=== PATIENT | female | born 1965 ===

== ENCOUNTER 2023-09-30 20:08 | Inpatient (IN) | payer OTHER, SELFPAY ==
[2023-09-30 17:23] VITALS: BMI 36.0
[2023-09-30 17:35] VITALS: BP 127/61
[2023-09-30 17:57] LABS: COVID-19 Antigen Negative (Negative)
[2023-09-30 18:00] VITALS: BP 125/58
[2023-09-30] MEDS: NSS 1400 ML IV (18:01)
[2023-09-30] MEDS: TYLENOL 1000 MG PO (18:02)
[2023-09-30] MEDS: MOTRIN 600 MG PO (18:06)
[2023-09-30 18:40] LABS: % Basophils 0.2 % (0-2); % Immature Granulocytes 0.7 % (0-0.5); % Lymphocytes 6.6 % (20.5-51.1); % Monocytes 6.5 % (1.7-9.3); Absolute Immature Granulocytes 0.2 10^3/uL (0-0.05); Absolute Lymphocytes 1.5 10^3/uL (1.2-3.4); Absolute Monocytes 1.5 10^3/uL (0.1-0.6); Absolute Neutrophils 19.3 10^3/uL (1.4-6.5); Hematocrit 41.1 % (37.0-47.0); Hemoglobin 14.3 g/dL (12.0-16.0); Mean Corp Hgb Conc. 34.8 g/dL (33.0-37.0); Mean Corpuscular Hgb 30.4 pg (27.0-31.0); Mean Corpuscular Volume 87.3 fL (81.0-99.0); Mean Platelet Volume 9.7 fL (7.4-10.4); Nucleated Red Blood Cells % 0 %; Platelet Count 275 10^3/uL (130-400); Red Blood Cell Count 4.71 10^6/uL (4.20-5.40); Red Cell Dist. Width 13.4 % (11.5-14.5); White Blood Cell Count 22.5 10^3/uL (4.8-10.8)
[2023-09-30 18:43] LABS: Lactic Acid 1.3 mmol/L (0.7-2.0)
[2023-09-30 18:47] LABS: ALT (SGPT) 42 U/L (0-35); AST (SGOT) 47 U/L (14-36); Albumin 3.6 g/dl (3.5-5.0); Alkaline Phosphatase 75 U/L (38-126); Blood Urea Nitrogen 22 mg/dl (7-17); Calcium 8.5 mg/dl (8.4-10.2); Carbon Dioxide 33 mmol/L (22-30); Chloride 92 mmol/L (98-107); Estimated Creatinine Clearance 64 ml/min; Glucose 148 mg/dl (70-99); Potassium 2.7 mmol/L (3.5-5.1); Sodium 133 mmol/L (135-145); Total Bilirubin 0.8 mg/dl (0.2-1.3); Total Protein 6.3 g/dl (6.3-8.2); eGFR > 60.00
--- NOTE | 2023-09-30 18:47 | ED.GENMED ---
History of Present Illness
General
Chief Complaint: Fever
Source: patient
Exam Limitations: none
Time Seen by Provider: 09/30/23 17:25
Travel History
Have you had any contact with someone who has COVID-19?: No
Do you have any symptoms of coronavirus? Fever > 100 degrees, chills, cough, shortness of breath, sore throat, loss of taste or smell, muscle aches, or headache?: Yes
Symptoms:: chills, fever,
History of Present Illness
History of Present Illness:
58 y/o F with h/o depression, hypertension
here with fever, bodyaches, sore throat, myaglias, fatigue, high fever since yesterday
pt has had painful swallwing
no cough, abdominal pain, vomiting, diarrhea, rash, neck stiffness, cp, sob,
pt didn't take any meds for fever
temp was 104.5 at home at 4 pm
pt hasn't had any meds today
hasn't eaten much
Past History
Past History
ED Past Medical History: HTN and Psychiatric
Social History
Tobacco: Non-smoker
Alcohol: None
Drug: None
Review of Systems
Review of Systems
Allergies reviewed?: Yes
All Other Systems: Not applicable
Phy Exam
Physical Exam
Physical Exam:
GENERAL: asleep, easily arousable, ill appearing
EYE: pupils equal and reactive
NECK: Supple
ENT: severely erythematous throat, tonsillith on right side, no obvious abscess
moving neck easily
normal phonation
CARDIAC: Regular rate and rhythm .
LUNGS: Clear breath sounds bilaterally, no acute respiratory distress, no wheezes/rales/rhonchi
ABDOMEN: Soft, without focal tenderness, no r/g, no cvat, normal bowel sounds
NEUROLOGICAL: Alert and oriented, no focal neuro deficits
SKIN: Warm and dry, skin intact.
MUSCULOSKELETAL: No edema, well perfused. neg chhaya's sign
PSYCH: Normal and appropriate interaction.
Course
Orders/Labs/Results
Orders:
Orders
09/30/23 Dinner
Regular
At Your Request: Full Participation
09/30/23 17:28
EKG [Electrocardiogram (*1)] Urgent
Reason for Study: Fatigue / Weakness
09/30/23 17:29
EKG- Treatment ONCE
09/30/23 17:32
Influenza A+B Rapid Molecular Urgent
ORTIZ Source: Nasal Swab
Specimen Description:
09/30/23 17:34
COVID-19 Antigen Urgent
Source: Nasal Swab
09/30/23 17:47
Cardiac Monitoring- Treatment ONCE
0.9% Sodium Chloride 1000 ml [Nss] 1,400 ml IV NOW STA
Acetaminophen [Tylenol] 1,000 mg PO NOW STA
Ibuprofen [Motrin] 600 mg PO NOW STA
09/30/23 17:48
CR Chest Portable - 1 View Urgent
Comment:
Reason For Exam: fever, sepsis
Reason Study Needs to be Portable: Patient Unstable
09/30/23 18:05
Ibuprofen [Motrin] 600 mg .ROUTE .STK-MED ONE
09/30/23 18:09
Complete Blood Count/With Diff Urgent
Comprehensive Metabolic Panel Urgent
Lactic Acid Q4H
Comment: CANCEL 2nd LACTIC ACID IF 1st LACTIC ACID IS LESS THAN 2
Magnesium Urgent
Comment: ADD ON
Troponin I Urgent
Blood Culture Q30M
ORTIZ Source: Blood/Venous
Specimen Description:
Blood Culture Q30M
ORTIZ Source: Blood/Venous
Specimen Description:
09/30/23 18:18
Rapid Strep Group A Urgent
ORTIZ Source: Throat/Pharynx
Specimen Description:
Date Specimen was Collected: 09/30/23
Time Specimen was Collected: 18:15
09/30/23 18:48
CT Neck With Iv Contrast Urgent
Comment:
Reason For Exam: STREP, SEPSIS
Piperacillin/Tazo 4.5 Gram [Zosyn] 4.5 gram in 100 ml IV NOW
09/30/23 18:50
Add On- LAB Urgent
Tests Added?: magnesium
09/30/23 19:19
Potassium Chloride [KCl] 20 meq PO NOW STA
09/30/23 19:21
Admit/Transfer Patient As Directed
Co-Sign Provider:
Level of Care: Inpatient admission
Assign to:: Medical/Surgical
Physician / Group: deborah
Diagnosis: strep pharyngitis
Reason for Hospitalization: strep pharyngitis
Expected length of stay greater than two midnights?: Yes
ELOS- Estimated Length of Stay in days: 2
I certify the patient meets the requirements for IP care: Yes
09/30/23 19:23
Code Status As Directed
Resuscitation Status: Full Code
09/30/23 21:51
Urinalysis Reflex To Culture Urgent
Date Specimen was Collected: 09/30/23
Time Specimen was Collected: 21:46
09/30/23 21:58
0.9% Sodium Chloride 1000 ml [Nss] 1,000 ml IV 100 mls/hr
Acetaminophen [Tylenol] 650 mg PO Q4HPRN PRN
Artificial Tears (Pf) [Refresh Eye Drops (Pf)] 1 drops BOTH EYES DAILYPRN PRN
Heparin 5,000 units SC Q12
Ibuprofen [Motrin] 400 mg PO Q6HPRN PRN
09/30/23 21:58
Activity As Directed
Activity Level: As Tolerated
Vital Signs As Directed
Frequency: Per unit guidelines
DX Deep Vein Thrombosis Video Routine
10/01/23 06:00
Complete Blood Count/With Diff IN AM
Comprehensive Metabolic Panel IN AM
10/01/23 18:00
Chlorthalidone [Hygroton] 25 mg PO QPM
Citalopram [Celexa] 20 mg PO QPM
Lisinopril [Zestril] 10 mg PO QPM
Pantoprazole [Protonix] 40 mg PO QPM
Abnormal Lab Results
09/30/23
18:09
WBC 22.5 H 10^3/uL
(4.8-10.8)
Abs Immat Gran (auto) 0.2 H 10^3/uL
(0-0.05)
Absolute Neuts (auto) 19.3 H 10^3/uL
(1.4-6.5)
Absolute Monos (auto) 1.5 H 10^3/uL
(0.1-0.6)
Immature Gran % 0.7 H %
(0-0.5)
Neutrophils % 86.0 H %
(42.2-75.2)
Lymphocytes % 6.6 L %
(20.5-51.1)
Sodium 133 L mmol/L
(135-145)
Potassium 2.7 L* mmol/L
(3.5-5.1)
Chloride 92 L mmol/L
(98-107)
Carbon Dioxide 33 H mmol/L
(22-30)
BUN 22 H mg/dl
(7-17)
Glucose 148 H mg/dl
(70-99)
AST 47 H U/L
(14-36)
ALT 42 H U/L
(0-35)
09/30/23 18:09
09/30/23 18:09
Vital Signs
Initial and Last Documented VS:
Initial Vital Signs
Temp Pulse Resp BP Pulse Ox
105 F H 95 18 127/61 93
09/30/23 17:35 09/30/23 17:35 09/30/23 17:35 09/30/23 17:35 09/30/23 17:35
Last Documented Vital Signs
Temp Pulse Resp BP Pulse Ox
97.9 F 73 16 87/47 97
09/30/23 22:15 10/01/23 01:08 09/30/23 22:15 10/01/23 01:08 09/30/23 22:15
MDM/Problems Addressed
Differential Diagnosis Includes:
strep, flu, covid, sepsis, bacteremia
MDM/Problems Addressed:
iglesia avalos 58 y/o F h/o strep throat in the past; high fever x 2 days, lethargy, sroe throat, bodyaches; temp 105 on arrival, bp was 100s now 120s, severely red throat, no signs of abscess, tolerating secretions; wbc 22, k 2.7 (mag pending and
i'll order meds), qtc 550, covid and flu neg; STREP POS; pending CT neck with contrast; but i suspect just pharyngitis but possibly strep bacteremia; zosyn
ent aware
*Critical Care Note
Total Time (30-74mins, 75-104mins- exclusive of procedures): Not Applicable
ED Attending Note
-
Portions of this chart may have been created with voice recognition software.� Occasional wrong word or��sound alike� substitutions may have occurred due to the inherent limitations of voice recognition software.
Discharge Plan
Departure
Patient Disposition: Admit
Date of Disposition: 09/30/23
Time of Disposition: 18:49
Admit to: IMU
Presentation/result/management discussed w/ accepting MD/DO: Hospitalist
Patient with high blood pressure during this ER visit?: No
Condition: Fair
Covid-19: Not Applicable
Discharge Problem:
Strep pharyngitis, Sepsis
Interventions
Interventions:
*Risk Screen - Suicide Last Done: 09/30/23 17:43
*General Assessment Last Done: 09/30/23 17:27
*Neglect/Abuse Screening Last Done: 09/30/23 22:26
ED- Fall Risk Assessment Last Done: 09/30/23 17:43
*ED COVID-19 Vaccine History Last Done: 09/30/23 17:27
*Nursing Disposition Last Done: 09/30/23 22:26
ED- Neurological Assessment Last Done: 09/30/23 17:43
ED-Skin Assessment Last Done: 09/30/23 17:43
Discharge Date and Time
Discharge Date/Time: 09/30/23 22:27
[2023-09-30 18:57] LABS: Troponin I < 0.012 ng/ml
[2023-09-30] MEDS: ZOSYN 100 IV (18:57)
[2023-09-30 19:01] VITALS: BP 119/53
[2023-09-30 19:07] LABS: Magnesium 1.6 mg/dl (1.6-2.3)
--- NOTE | 2023-09-30 19:27 | HPS.HSE ---
Addendum entered and electronically signed by Khoi Ascencio MD 09/30/23 21:36:
Neck CT shows small right tonsillar pilar abscess formation measuring 6 mm. ER spoke with ENT who states it is too small for any intervention.
Original Note:
Family Physician
-
Family Physician: Kylie Diego
Chief Complaint
-
sore throat
History of Present Illness
58-year-old female past medical history of strep throat, depression, vertigo, hypertension, obesity, hepatic steatosis, skin cancer, presenting with fever, body aches, sore throat, fatigue, high fever since yesterday. She has painful swallowing.
Denies cough, runny nose, abdominal pain, vomiting, diarrhea, rash, neck stiffness, chest pain or shortness of breath. She states that she gets strep throat 3 times a year. He denies any sick contacts.
Denies smoking or alcohol use.
Medical History
Past Medical History
Past Medical History: Reports Other ( strep throat, depression, vertigo, hypertension, obesity, hepatic steatosis)
Past Surgical History: Reports and Gynocological
Social History
Tobacco: Non-smoker
Alcohol: None
Drug: None
Family History
Family History: Not pertinent
Allergies / Home Medications
Allergies reflects when Allergies were last updated in [facility].
Home Medications with original date entered in [facility]
Allergy/Medication List:
Allergies
Allergy/AdvReac Type Severity Reaction Status Date / Time
morphine Allergy Rash Verified 09/30/23 17:27
Home Medications
Nutrafol Supplement 4 tab PO QPM 09/30/23
atenolol 50 mg-chlorthalidone 25 mg tablet 1 tab PO QPM 09/30/23
citalopram 20 mg tablet 20 mg PO QPM 09/30/23
dextran 70-hypromellose (PF) 0.1 %-0.3 % eye drops in a dropperette (Artificial Tears (PF)) 1 drp BOTH EYES DAILYPRN PRN dry eyes 09/30/23
lisinopril 10 mg tablet 10 mg PO QPM 09/30/23
omeprazole 40 mg capsule,delayed release 40 mg PO QPM 09/30/23
Review of Systems
-
History Source: Patient
A 12 point ROS was completed and negative except as noted: Yes
Constitutional: Reports No Symptoms
EENT: Reports No Symptoms
Respiratory: Reports No Symptoms
Cardiac: Reports No Symptoms
Abdomen/GI: Reports No Symptoms
: Reports No Symptoms
Musculoskeletal: Reports No Symptoms
Skin: Reports No Symptoms
Neurological: Reports No Symptoms
Endocrine: Reports No Symptoms
Hematologic/Lymphatic: Reports No Symptoms
Psych: Reports No Symptoms
Physical Exam
Vital Signs
Vital Signs
Temp Pulse Resp BP Pulse Ox
105 F H 91 18 127/61 92
09/30/23 17:35 09/30/23 17:35 09/30/23 17:35 09/30/23 17:35 09/30/23 17:35
Physical Exam
General: Well Developed, Well Nourished and No Apparent Distress
HEENT: NormoCephalic, Moist mucous membranes, Atraumatic and Other (erythema throat )
Respiratory: Clear
Cardiac: S1/S2 and Regular Rhythm; No Murmur or Rub
GI: Soft, Non Tender, Non Distended and Normal Bowel Sounds; No Organomegaly
Rectal: Deferred by Provider
Musculoskeletal: No Clubbing, No Cyanosis and No Edema
Skin: No Rash
Neuro: Nonfocal/grossly intact
Laboratory Results
-
09/30/23 18:09
09/30/23 18:09
Laboratory Results
Lactic Acid 1.3 mmol/L (0.7-2.0) 09/30/23 18:09
Total Bilirubin 0.8 mg/dl (0.2-1.3) 09/30/23 18:09
AST 47 U/L (14-36) H 09/30/23 18:09
ALT 42 U/L (0-35) H 09/30/23 18:09
Alkaline Phosphatase 75 U/L (38-126) 09/30/23 18:09
Troponin I < 0.012 ng/ml 09/30/23 18:09
Data Reviewed
-
Lab Data: Labs Reviewed by me
Old Records: Reviewed
Impression/Plan
-
IMPRESSION:
PLAN:
# Sepsis (fever, leukocytosis) secondary to Group A strep pharyngitis
# History of recurrent strep throat
-Positive for strep A
-Chest x-ray negative
-COVID-negative and influenza negative
-CT neck pending
-Check blood cultures
-IV fluids
-Ceftriaxone
-Tylenol for fever, ibuprofen
# Hypokalemia secondary to chlorthalidone
-Replete potassium
-Check magnesium
Essential hypertension
-Continue atenolol/chlorthalidone
-Continue lisinopril
Depression
-Continue citalopram
Obesity
Hepatic steatosis
GERD
-Continue omeprazole
History of vertigo
History of skin cancer
Full code
DVT prophylaxis�heparin
Regular diet
[2023-09-30] MEDS: KCL 20 MEQ PO (21:41)
[2023-09-30 22:00] VITALS: BMI 35.7
[2023-09-30 22:06] LABS: Urine Albumin Trace (Neg - Trace); Urine Bilirubin Negative (Negative); Urine Character Clear (Clear); Urine Color Yellow; Urine Glucose Negative (Negative); Urine Ketone Negative (Negative); Urine Leukocyte Trace (Negative); Urine Nitrite Negative (Negative); Urine Occult Blood 1+ (Negative); Urine Urobilinogen Negative (Neg - 1+)
[2023-09-30 22:15] VITALS: BP 88/49
[2023-09-30 22:16] LABS: Urine Squamous Cell >30 /LPF (Few)
[2023-09-30 22:17] LABS: Urine Urothelial Cell 0-2 /LPF (FEW); Urine White Cell 0-2 /HPF (0-5)
[2023-09-30] MEDS: KCL 160 MEQ IV (22:27)
[2023-09-30] MEDS: NSS 1000 IV (22:27)
[2023-09-30] MEDS: MOTRIN 400 MG PO (22:38)
[2023-09-30] MEDS: HEPARIN 5000 UNITS SC (22:39)
--- NOTE | 2023-09-30 23:15 | PTCARENOTE ---
Received pt from the ED via stretcher, pt ambulated steadily and independently from stretcher to hospital bed, no c/o dizziness/unsteadiness. Pt AAOx3, medsurg, tolerating RA 97%. Pt c/o pain w/ swallowing, but tolerating secretions. Pt denies SOB
or difficulty breathing, reports 8/10 throat pain. Pt's BP 88/49, asymptomatic. NSS initiated @ 80mL/hr concurrently with IV Potassium @ 80mL/hr per order, PRN Ibuprofen administered for pain, see MAR. Pt oriented to unit and call marlow.
[2023-10-01] VITALS (7 sets, daily range): BP systolic 87–168; BP diastolic 47–63
[2023-10-01] MEDS: ZOSYN 50 IV ×4 (00:59→17:55)
--- NOTE | 2023-10-01 01:42 | PTCARENOTE ---
IV Potassium completed, pt received 360mL fluid, repeat BP 87/47. Pt remains asymptomatic, denies dizziness/lightheadedness. D/w covering FERN CUTTER, IVF rate changed from 80mL/hr to 100mL/hr.
--- NOTE | 2023-10-01 03:30 | PTCARENOTE ---
Repeat BP 89/51, pt remains asymptomatic. Covering RN HEMATOLOGY updated, no new orders at this time, NSS remains infusing at 100mL/hr.
[2023-10-01 06:27] LABS: % Basophils 0.2 % (0-2); % Eosinophils 0.2 % (0-6); % Immature Granulocytes 0.6 % (0-0.5); % Lymphocytes 5.4 % (20.5-51.1); % Monocytes 5.2 % (1.7-9.3); % Neutrophils 88.4 % (42.2-75.2); Absolute Immature Granulocytes 0.1 10^3/uL (0-0.05); Absolute Neutrophils 17.2 10^3/uL (1.4-6.5); Hematocrit 38.8 % (37.0-47.0); Hemoglobin 13.1 g/dL (12.0-16.0); Mean Corp Hgb Conc. 33.8 g/dL (33.0-37.0); Mean Corpuscular Hgb 30.3 pg (27.0-31.0); Mean Corpuscular Volume 89.6 fL (81.0-99.0); Mean Platelet Volume 9.4 fL (7.4-10.4); Nucleated Red Blood Cells % 0 %; Platelet Count 226 10^3/uL (130-400); Red Blood Cell Count 4.33 10^6/uL (4.20-5.40); Red Cell Dist. Width 13.7 % (11.5-14.5); White Blood Cell Count 19.4 10^3/uL (4.8-10.8)
[2023-10-01 06:55] LABS: ALT (SGPT) 68 U/L (0-35); AST (SGOT) 75 U/L (14-36); Albumin 3.6 g/dl (3.5-5.0); Alkaline Phosphatase 92 U/L (38-126); Blood Urea Nitrogen 22 mg/dl (7-17); Calcium 7.8 mg/dl (8.4-10.2); Carbon Dioxide 29 mmol/L (22-30); Chloride 104 mmol/L (98-107); Estimated Creatinine Clearance 57 ml/min; Glucose 104 mg/dl (70-99); Sodium 140 mmol/L (135-145); Total Bilirubin 0.9 mg/dl (0.2-1.3); Total Protein 6.4 g/dl (6.3-8.2); eGFR > 60.00
[2023-10-01 07:36] LABS: Hepatitis C Antibody Negative (Negative)
--- NOTE | 2023-10-01 07:55 | W.PN.HOSP.TC ---
Today's Communication/Plan
-
Continue Zosyn
Continue IV fluids as BP remains soft
Hold antihypertensives including chlorthalidone which also contributed to hypokalemia
Add Toradol for pain
Encourage salt water gargle
Assessment / Plan
Assessment / Plan
58-year-old female past medical history of strep throat, depression, vertigo, hypertension, obesity, hepatic steatosis, skin cancer,� presenting with fever, body aches, sore throat, fatigue, high fever since yesterday.� She has painful swallowing.�
Denies cough, runny nose, abdominal pain, vomiting, diarrhea, rash, neck stiffness, chest pain or shortness of breath.� She states that she gets strep throat 3 times a year.� He denies any sick contacts.
Denies smoking or alcohol use.
# Sepsis (fever, leukocytosis) secondary to Group A strep pharyngitis
# History of recurrent strep throat
-Positive for strep A
-Chest x-ray negative
-COVID-negative and influenza negative
-CT neck small right peritonsillar 6 mm abscess/per ENT too small to drain
-Check blood cultures
-IV fluids to continue
-Zosyn to continue
-Tylenol for fever, ibuprofen/Toradol if cannot tolerate pills
# Hypokalemia secondary to chlorthalidone
-Replete potassium
-Check magnesium
Essential hypertension
-Continue atenolol/chlorthalidone
-Continue lisinopril
Depression
-Continue citalopram
Obesity
Hepatic steatosis
GERD
-Continue omeprazole
History of vertigo
History of skin cancer
Full code
DVT prophylaxis�heparin
Regular diet
Anticipated Discharge: 24 - 48 hours
Subjective/Interval History
-
Date of Service: October 01, 2023
Continues with complaint of right side more than left side sore throat difficulty swallowing but tolerating liquids not choking and able to swallow saliva some benefit with Motrin which she has trouble taking
Objective Data
-
Labs:
Laboratory Results
10/01/23
05:15
WBC 19.4 H
Hgb 13.1
Hct 38.8
Plt Count 226
Sodium 140
Potassium 3.0 L
Chloride 104
Carbon Dioxide 29
BUN 22 H
Creatinine 1.0
Glucose 104 H
Calcium 7.8 L
Total Bilirubin 0.9
AST 75 H
ALT 68 H
Alkaline Phosphatase 92
Vital Signs:
Vital Signs
Temp Pulse Resp BP Pulse Ox
96.4 F L 78 16 102/52 95
10/01/23 07:52 10/01/23 07:52 09/30/23 22:15 10/01/23 07:52 10/01/23 07:52
I&O
09/30/23 10/01/23 10/02/23
06:59 06:59 06:59
Intake Total 1500 / 1500
Balance 1500 / 1500
Review of Systems
-
History Source: Patient
Constitutional: Reports No Symptoms and Fever (Borderline hypothermia this morning)
EENT: Reports Sore Throat (Right side more than left)
Cardiac: Reports No Symptoms
Abdomen/GI: Reports No Symptoms
Breast: Reports No Symptoms
Physical Exam
-
General: Well Developed
HEENT: Normocephalic and Neck Masses (Positive tender lymphadenopathy especially right side); Negative Neck Non Tender
Respiratory: Clear to Auscultation
Cardiac: Regular Rhythm
GI: Soft, Nontender and Nondistended
Musculoskeletal: No Clubbing and No Edema
Skin: IV Access / Catheter Site
Psych: Calm
Data Reviewed
-
Total Time Spent with Patient (in minutes): 45
CT Scan: Report Reviewed by me (Noted a small right tonsillar pillar abscess measuring 6 mm/epiglottis and airway were unremarkable as was thyroid gland and vocal cords)
Labs: Labs Reviewed by me (Potassium depressed at 3.0 white count down to 19,000 from 22,000 on admission)
[2023-10-01] MEDS: HEPARIN 5000 UNITS SC (08:38)
[2023-10-01] MEDS: TORADOL 15 MG IV ×3 (08:38→22:32)
[2023-10-01] MEDS: KCL 270 MEQ IV (08:40)
[2023-10-01] MEDS: NSS 1000 IV (08:42)
[2023-10-01] MEDS: TYLENOL 650 MG PO (12:50)
--- NOTE | 2023-10-01 15:05 | CM ---
Initial assessment completed with patient and who live in a 2 story home with B/B on 2nd floor and full bath also on 1st floor. Full basement. Patient's mother also lives with couple. No POA or advanced directives. Patient was independent
[employer] and drove. No services in the home. Does have a RW and lymphedema pump for R leg. No psych history. Pharmacy is [facility] [address] in [place], PCP is Dr. Renetta Diego. Anticipate no needs at discharge. Patient is in agreement.
[2023-10-01] MEDS: PROTONIX 40 MG PO (17:53)
[2023-10-01] MEDS: CELEXA 20 MG PO (17:53)
[2023-10-01] MEDS: TENORMIN 50 MG PO (17:54)
[2023-10-01] MEDS: ZESTRIL 10 MG PO (17:54)
[2023-10-01] MEDS: HEPARIN SC (21:07)
--- NOTE | 2023-10-01 22:17 | W.PN.UPDATE ---
Update Note
Progress Note Update
RN notified MULESER, patient with loose stools, on Zosyn antibiotic, did collect sample for C-diff. will give Imodium once.
[2023-10-01] MEDS: IMODIUM 2 MG PO (22:25)
[2023-10-02] MEDS: ZOSYN 50 IV ×4 (00:07→17:05)
[2023-10-02 03:42] VITALS: BP 157/41
[2023-10-02] MEDS: MOTRIN 400 MG PO (04:11)
[2023-10-02] MEDS: NSS 1000 IV ×2 (04:13→14:29)
[2023-10-02 06:10] LABS: Hematocrit 32.4 % (37.0-47.0); Mean Corpuscular Hgb 30.2 pg (27.0-31.0); Mean Platelet Volume 9.6 fL (7.4-10.4); Platelet Count 197 10^3/uL (130-400); Red Blood Cell Count 3.64 10^6/uL (4.20-5.40); Red Cell Dist. Width 13.9 % (11.5-14.5); White Blood Cell Count 15.3 10^3/uL (4.8-10.8)
[2023-10-02 06:33] LABS: Blood Urea Nitrogen 9 mg/dl (7-17); Calcium 7.5 mg/dl (8.4-10.2); Carbon Dioxide 26 mmol/L (22-30); Chloride 108 mmol/L (98-107); Estimated Creatinine Clearance 82 ml/min; Glucose 117 mg/dl (70-99); Magnesium 1.8 mg/dl (1.6-2.3); Potassium 2.8 mmol/L (3.5-5.1); Sodium 139 mmol/L (135-145); eGFR > 60.00
--- NOTE | 2023-10-02 07:41 | W.PN.HOSP.TC ---
Today's Communication/Plan
-
Replete potassium deficit
Probably from diarrheal course
Continue another day of IV Zosyn
Check for C. difficile
Toradol as needed and Motrin tolerated
Assessment / Plan
Assessment / Plan
58-year-old female past medical history of strep throat, depression, vertigo, hypertension, obesity, hepatic steatosis, skin cancer,� presenting with fever, body aches, sore throat, fatigue, high fever since yesterday.� She has painful swallowing.�
Denies cough, runny nose, abdominal pain, vomiting, diarrhea, rash, neck stiffness, chest pain or shortness of breath.� She states that she gets strep throat 3 times a year.� He denies any sick contacts.
Denies smoking or alcohol use.
# Sepsis (fever, leukocytosis) secondary to Group A strep pharyngitis
# History of recurrent strep throat
-Positive for strep A
-Chest x-ray negative
-COVID-negative and influenza negative
-CT neck small right peritonsillar 6 mm abscess/per ENT too small to drain
-Check blood cultures
-IV fluids to continue
-Zosyn to continue
-Tylenol for fever, ibuprofen/Toradol if cannot tolerate pills
Diarrhea
-Probably in relation to antibiotic use
-C. difficile toxin pending if negative continue Imodium as needed
# Hypokalemia secondary to chlorthalidone
-Replete potassium
-Check magnesium
Essential hypertension
-Continue atenolol/chlorthalidone
-Continue lisinopril
Depression
-Continue citalopram
Obesity
Hepatic steatosis
GERD
-Continue omeprazole
History of vertigo
History of skin cancer
Full code
DVT prophylaxis�heparin
Regular diet
Anticipated Discharge: Within 24 hours
Subjective/Interval History
-
Date of Service: October 02, 2023
She developed loose stools and diarrhea otherwise throat about the same but was able to take Motrin tablet this morning Toradol helped. Pain and inflammation yesterday. Tolerated regular diet.
Objective Data
-
Labs:
Laboratory Results
10/02/23
05:28
WBC 15.3 H
Hgb 11.0 L
Hct 32.4 L
Plt Count 197
Sodium 139
Potassium 2.8 L
Chloride 108 H
Carbon Dioxide 26
BUN 9
Creatinine 0.7
Glucose 117 H
Calcium 7.5 L
Vital Signs:
Vital Signs
Temp Pulse Resp BP Pulse Ox
98.7 F 89 16 157/41 96
10/02/23 03:42 10/02/23 03:42 10/02/23 03:42 10/02/23 03:42 10/02/23 05:50
I&O
10/01/23 10/02/23 10/03/23
06:59 06:59 06:59
Intake Total 1500 / 1500 3241 / 3241
Balance 1500 / 1500 3241 / 3241
Review of Systems
-
History Source: Patient
EENT: Reports Sore Throat
Cardiac: Reports No Symptoms
Abdomen/GI: Reports Diarrhea
Musculoskeletal: Reports No Symptoms
Skin: Reports No Symptoms
Physical Exam
-
General: Well Developed
HEENT: Normocephalic; Negative Neck Non Tender (Tender right-sided lymphadenopathy more than left/posterior oropharynx on the right is red and cannot see exudate)
Cardiac: Regular Rhythm
GI: Soft, Nontender, Nondistended and Normal Bowel Sounds
Psych: Calm
Data Reviewed
-
Total Time Spent with Patient (in minutes): 56
Labs: Labs Reviewed by me (White count continues to trend down to 15,000 today/potassium 2.8)
[2023-10-02 08:02] VITALS: BP 108/60
[2023-10-02] MEDS: HEPARIN SC ×3 (08:54→20:40)
[2023-10-02] MEDS: KCL 270 MEQ IV (08:54)
[2023-10-02] MEDS: VISBIOME 1 CAP PO (08:54)
[2023-10-02] MEDS: TORADOL 15 MG IV ×2 (09:09→15:11)
[2023-10-02] MEDS: NSS IV (10:04)
[2023-10-02 11:20] VITALS: BP 109/58
--- NOTE | 2023-10-02 13:14 | CM ---
Sepsis 2nd to Strep A pharyngitis. IV/AB. Discharge POC: Initially home w no needs. Will continue to follow medical progress. Will update POC if needs change or if home with IV/AB.
[2023-10-02] MEDS: IMODIUM 2 MG PO ×2 (14:29→18:34)
[2023-10-02 15:06] VITALS: BP 109/62
[2023-10-02] MEDS: TENORMIN 50 MG PO (17:04)
[2023-10-02] MEDS: ZESTRIL 10 MG PO (17:04)
[2023-10-02] MEDS: CELEXA 20 MG PO (17:05)
[2023-10-02] MEDS: COMPAZINE 5 MG IV (18:49)
[2023-10-02 19:10] VITALS: BP 121/70
[2023-10-02] MEDS: PEPCID 20 MG PO (20:42)
[2023-10-02 23:10] VITALS: BP 132/68
[2023-10-03] MEDS: ZOSYN 50 IV ×2 (00:03→06:14)
[2023-10-03] MEDS: TYLENOL 650 MG PO (00:11)
[2023-10-03] MEDS: MOTRIN 400 MG PO ×3 (01:04→20:44)
[2023-10-03 03:10] VITALS: BP 107/59
[2023-10-03 06:13] LABS: Hematocrit 32.2 % (37.0-47.0); Hemoglobin 10.8 g/dL (12.0-16.0); Mean Corp Hgb Conc. 33.5 g/dL (33.0-37.0); Mean Corpuscular Hgb 30.1 pg (27.0-31.0); Mean Corpuscular Volume 89.7 fL (81.0-99.0); Mean Platelet Volume 9.9 fL (7.4-10.4); Platelet Count 226 10^3/uL (130-400); Red Blood Cell Count 3.59 10^6/uL (4.20-5.40); Red Cell Dist. Width 14.3 % (11.5-14.5); White Blood Cell Count 10.4 10^3/uL (4.8-10.8)
[2023-10-03 06:35] LABS: Blood Urea Nitrogen 8 mg/dl (7-17); Carbon Dioxide 27 mmol/L (22-30); Chloride 108 mmol/L (98-107); Estimated Creatinine Clearance 82 ml/min; Glucose 101 mg/dl (70-99); Magnesium 1.9 mg/dl (1.6-2.3); Potassium 3.1 mmol/L (3.5-5.1); Sodium 139 mmol/L (135-145); eGFR > 60.00
--- NOTE | 2023-10-03 07:20 | W.PN.HOSP.TC ---
Today's Communication/Plan
-
Concern with continued fever in spite of normalization of leukocytosis
Recheck blood culture/initial blood culture on presentation was normal no growth
Repeat CT of the neck if unchanged or improved can probably discharge for complete course of antibiotics
Given C. difficile antigen positivity and toxin negative would also add vancomycin p.o. during antibiotic course and continue probiotic
Assessment / Plan
Assessment / Plan
58-year-old female past medical history of strep throat, depression, vertigo, hypertension, obesity, hepatic steatosis, skin cancer,� presenting with fever, body aches, sore throat, fatigue, high fever since yesterday.� She has painful swallowing.�
Denies cough, runny nose, abdominal pain, vomiting, diarrhea, rash, neck stiffness, chest pain or shortness of breath.� She states that she gets strep throat 3 times a year.� He denies any sick contacts.
Denies smoking or alcohol use.
# Sepsis (fever, leukocytosis) secondary to Group A strep pharyngitis
# History of recurrent strep throat
-Positive for strep A
-Chest x-ray negative
-COVID-negative and influenza negative
-CT neck small right peritonsillar 6 mm abscess/per ENT too small to drain/will repeat prior to discharge due to continued fever in spite of normalization of leukocytosis
-Check blood cultures
-IV fluids to continue
-Zosyn to continue
-Tylenol for fever, ibuprofen/Toradol if cannot tolerate pills
Diarrhea
-Probably in relation to antibiotic use
-C. difficile toxin was negative however antigen was positive suggesting prior exposure and/or carrier state
-Continue probiotic/add vancomycin p.o. while on antibiotic course
# Hypokalemia secondary to chlorthalidone
-Replete potassium
-Check magnesium
Essential hypertension
-Continue atenolol/chlorthalidone
-Continue lisinopril
Depression
-Continue citalopram
Obesity
Hepatic steatosis
GERD
-Continue omeprazole
History of vertigo
History of skin cancer
Full code
DVT prophylaxis�heparin
Regular diet
Anticipated Discharge: 24 - 48 hours
Subjective/Interval History
-
Date of Service: October 03, 2023
Had continued diarrhea throughout the day yesterday/some nausea attributed to overindulgence with apple juice/tolerating diet and overall feeling better but had a temperature this morning of 102
Objective Data
-
Labs:
Laboratory Results
10/03/23
05:20
WBC 10.4
Hgb 10.8 L
Hct 32.2 L
Plt Count 226
Sodium 139
Potassium 3.1 L
Chloride 108 H
Carbon Dioxide 27
BUN 8
Creatinine 0.7
Glucose 101 H
Calcium 8.0 L
Vital Signs:
Vital Signs
Temp Pulse Resp BP Pulse Ox
98.4 F 82 18 107/59 99
10/03/23 03:10 10/03/23 03:10 10/03/23 03:10 10/03/23 03:10 10/03/23 03:22
I&O
10/02/23 10/03/23 10/04/23
06:59 06:59 06:59
Intake Total 3241 / 3241 3420 / 3420
Balance 3241 / 3241 3420 / 3420
Review of Systems
-
History Source: Patient
All other systems: Reviewed and negative
Constitutional: Reports No Symptoms
EENT: Reports Sore Throat (Less swelling and tenderness in the cervical)
Respiratory: Reports No Symptoms
Abdomen/GI: Reports Diarrhea
Breast: Reports No Symptoms
Physical Exam
-
General: Well Developed
HEENT: Normocephalic
Respiratory: Clear to Auscultation
Cardiac: Regular Rhythm and S1/S2
Skin: Warm and Dry
Neuro: Awake and Alert
Data Reviewed
-
Total Time Spent with Patient (in minutes): 45
CT Scan: Report Reviewed by me (Neck CT again reviewed on admission)
Medical Tests (Nuc Med, Echo etc): Report Reviewed by me (C. difficile toxin was negative however antigen was positive)
[2023-10-03 07:55] VITALS: BP 100/54
[2023-10-03] MEDS: VISBIOME 1 CAP PO (09:16)
[2023-10-03] MEDS: PEPCID 20 MG PO ×2 (09:16→20:40)
[2023-10-03] MEDS: AMOXIL 500 MG PO ×3 (09:16→23:17)
[2023-10-03] MEDS: HEPARIN SC ×2 (09:16→20:40)
[2023-10-03] MEDS: FIRVANQ 125 MG PO ×3 (12:01→23:17)
[2023-10-03] MEDS: KLOR-CON 20 MEQ PO (13:08)
--- NOTE | 2023-10-03 14:27 | CM ---
Discharge plan of care remains home with no needs.
[2023-10-03 15:08] VITALS: BP 119/62
[2023-10-03] MEDS: IMODIUM 2 MG PO ×2 (15:29→23:21)
[2023-10-03] MEDS: TENORMIN 50 MG PO (17:08)
[2023-10-03] MEDS: ZESTRIL 10 MG PO (17:09)
[2023-10-03] MEDS: CELEXA 20 MG PO (17:09)
[2023-10-03 23:28] VITALS: BP 123/62
[2023-10-04 04:56] LABS: Hematocrit 32.2 % (37.0-47.0); Hemoglobin 11.2 g/dL (12.0-16.0); Mean Corp Hgb Conc. 34.8 g/dL (33.0-37.0); Mean Corpuscular Hgb 30.7 pg (27.0-31.0); Mean Corpuscular Volume 88.2 fL (81.0-99.0); Mean Platelet Volume 9.1 fL (7.4-10.4); Platelet Count 236 10^3/uL (130-400); Red Blood Cell Count 3.65 10^6/uL (4.20-5.40); Red Cell Dist. Width 14.2 % (11.5-14.5); White Blood Cell Count 11.1 10^3/uL (4.8-10.8)
[2023-10-04 05:21] LABS: Blood Urea Nitrogen 8 mg/dl (7-17); Calcium 8.4 mg/dl (8.4-10.2); Carbon Dioxide 31 mmol/L (22-30); Chloride 101 mmol/L (98-107); Estimated Creatinine Clearance 95 ml/min; Glucose 106 mg/dl (70-99); Potassium 3.2 mmol/L (3.5-5.1); Sodium 140 mmol/L (135-145); eGFR > 60.00
--- NOTE | 2023-10-04 05:45 | W.PN.UPDATE ---
Addendum entered and electronically signed by MARISA Perez 10/04/23 06:27:
Additional order for Potassium Chloride 20meq now as requested by attending provider to floor nurse.
Original Note:
Update Note
Progress Note Update
Morning labs: potassium 3.2, order placed to replete with Potassium Chloride 20meq PO now
[2023-10-04] MEDS: FIRVANQ 125 MG PO (05:51)
[2023-10-04] MEDS: KCL 20 MEQ PO ×2 (05:51→06:49)
[2023-10-04] MEDS: IMODIUM 2 MG PO (05:58)
[2023-10-04] MEDS: TYLENOL 650 MG PO (05:59)
[2023-10-04 07:15] VITALS: BP 127/57
--- NOTE | 2023-10-04 07:49 | W.DS.TRANS ---
DC Summary - [facility]
-
Discharge Instructions:
Discharge Diagnosis/Procedures Acute strep pharyngitis
Hypokalemia
Diet No restrictions
Activity No restrictions
Driving Restrictions As prior to admission
Wound Care You could take a probiotic during antibiotic
course and take probiotic 1 week after finishing
course of antibiotics/[id number]
probiotics are fine
Stop these medications: Stop chlorthalidone until seen by primary care
doctor he was given prescription for atenolol
only
Instructions:
Stand-Alone Forms:
Changes to Home Medications: Yes
Discharge Medications:
DC Medications w/original date entered in [facility]
Nutrafol Supplement 4 tab PO QPM 09/30/23
citalopram 20 mg tablet 20 mg PO QPM 09/30/23
dextran 70-hypromellose (PF) 0.1 %-0.3 % eye drops in a dropperette (Artificial Tears (PF)) 1 drp BOTH EYES DAILYPRN PRN dry eyes 09/30/23
lisinopril 10 mg tablet 10 mg PO QPM 09/30/23
omeprazole 40 mg capsule,delayed release 40 mg PO QPM 09/30/23
amoxicillin 500 mg capsule 500 mg PO Q8 #20 caps 10/04/23
atenolol 50 mg tablet 50 mg PO QPM #30 tabs 10/04/23
loperamide 2 mg capsule 2 mg PO Q4HPRN PRN LOOSE STOOLS #20 caps 10/04/23
Home Medication Changes
amoxicillin 500 mg capsule 500 mg PO Q8 #20 caps 10/04/23
atenolol 50 mg tablet 50 mg PO QPM #30 tabs 10/04/23
loperamide 2 mg capsule 2 mg PO Q4HPRN PRN LOOSE STOOLS #20 caps 10/04/23
Pending Results: No
Total time spent discharging patient (in min): 38
[2023-10-04] MEDS: HEPARIN SC (09:08)
[2023-10-04] MEDS: VISBIOME 1 CAP PO (09:10)
[2023-10-04] MEDS: AMOXIL 500 MG PO (09:10)
[2023-10-04] MEDS: PEPCID 20 MG PO (09:10)
[2023-10-04] MEDS: FLUZONE QUAD 2023-2024 SYRINGE 0.5 ML IM (09:13)
--- NOTE | 2023-10-04 11:10 | W.DCSUMMARY ---
Discharge Summary
Discharge Data
Date of Admission: 09/30/23
Date of Discharge: 10/04/23
Total time spent discharging patient (in min): 45
-
Pending Results: No
Hospital Course
58-year-old female past medical history of strep throat, depression, vertigo, hypertension, obesity, hepatic steatosis, skin cancer,� presenting with fever, body aches, sore throat, fatigue, high fever since yesterday.� She has painful swallowing.�
Denies cough, runny nose, abdominal pain, vomiting, diarrhea, rash, neck stiffness, chest pain or shortness of breath.� She states that she gets strep throat 3 times a year.� He denies any sick contacts.
CT neck small right peritonsillar 6 mm abscess/per ENT too small to drain after curbside consultation with ENT by ED.
Patient tested positive for strep a.
Presumptive diagnosis time of presentation with sepsis in relation to group A strep pharyngitis
Physical exam did show very tender right-sided cervical adenopathy I could not elicit a definitive exudative change in the posterior pharynx but that was red and swollen as well as the left less.
Patient was placed on empiric antibiotic coverage with Zosyn
Blood cultures were drawn and proved negative throughout the course of her admission
Patient had slow resolution of her swallowing pain and cervical adenopathy diminished slowly she normalized initial presentation of leukocytosis
She however remained febrile and had a fever spike on 01 October necessitating a repeat blood culture that again proved negative for growth
A repeat CT scan of the neck in that regard
Slight interval improvement in size and conspicuity of right tonsillar round low-density lesion, suggesting improvement in right tonsillar abscess/phlegmon.
Patient did developed loose stools presumptive in relation to her ongoing antibiotic course a C. difficile assay for toxin was negative however antigen proved positive she was placed on a short course of vancomycin orally antibiotic therapy but that
is felt that the patient will not want this on an ongoing outpatient basis she was instructed to take a probiotic during course of amoxicillin at time of discharge will be continued for a week's time and then should continue probiotic for a week
thereafter
Discharge Plan
-
Patient Disposition: Home (Routine Discharge)
Discharge Diagnosis/Procedures: Acute strep pharyngitis
Hypokalemia
Diet: No restrictions
Activity: No restrictions
Driving Restrictions: As prior to admission
Wound Care: You could take a probiotic during antibiotic course and take probiotic 1 week after finishing course of antibiotics/[id number] probiotics are fine
Stop these medications:: Stop chlorthalidone until seen by primary care doctor he was given prescription for atenolol only
Referrals:
Kylie Diego, DO [Family Provider] - in less than 1 week (Chlorthalidone was stopped due to persisting hypokalemia during hospitalization reassess need/given prescription for atenolol only)
Prescriptions:
New
amoxicillin 500 mg Capsule
500 mg PO Q8 Qty: 20 0RF
loperamide 2 mg Capsule
2 mg PO Q4HPRN PRN (Reason: LOOSE STOOLS) Qty: 20 0RF
atenolol 50 mg Tablet
50 mg PO QPM Qty: 30 0RF
Continued
omeprazole 40 mg Capsule,Delayed Release(Dr/Ec)
40 mg PO QPM
citalopram 20 mg Tablet
20 mg PO QPM
lisinopril 10 mg Tablet
10 mg PO QPM
Artificial Tears (PF) 0.1-0.3 % Dropperette
1 drp BOTH EYES DAILYPRN PRN (Reason: dry eyes)
Nutrafol Supplement
4 tab PO QPM
Patient Comments:
09/30/2023, hair supplement.
Discontinued
atenolol-chlorthalidone 50-25 mg Tablet
1 tab PO QPM
Patient Comments:
09/30/2023, pt. states to use [facility] and fills this med. using that service.
Discharge Orders:
Discharge Patient (As Directed); Ordered 10/04/23
Ordered By: Andre Dsouza
Discharge Date and Time
Discharge Date/Time: 10/04/23 10:54
--- NOTE | 2023-10-04 11:25 | CM ---
Patient has been medically cleared for discharge to home with no additional skilled services. will transport home.
== END 2023-10-04 10:54 | disposition home or self-care (01) | DRG 872 ==
LOC: 2 NORTH 20:08
PROVIDERS: Physician Assistant; ADMITTING PHYSICIAN Hospitalist; ATTENDING PHYSICIAN Internal Medicine; EMERGENCY PHYSICIAN Emergency Medicine; FAMILY PHYSICIAN Family Medicine
DX: A41.9 Sepsis, unspecified organism (principal); A04.72 Enterocolitis due to Clostridium difficile, not specified as recurrent; J02.0 Streptococcal pharyngitis; E66.9 Obesity, unspecified; Z68.35 Body mass index [BMI] 35.0-35.9, adult; E87.6 Hypokalemia; I10 Essential (primary) hypertension; K76.0 Fatty (change of) liver, not elsewhere classified; F32.A Depression, unspecified; Z85.828 Personal history of other malignant neoplasm of skin
CPT/HCPCS: 70491; 71045; 80048; 80053; 81003; 81015; 83605; 83735; 84484; 85025; 85027; 86803; 87040; 87070; 87147; 87324; 87449; 87502; 87811; 87880; 90686; 93005; 96361; 96365; 99285; G0008; Q9967

== ENCOUNTER 2024-05-06 06:54 | Day surgery (SDC) | payer OTHER, SELFPAY ==
[2024-04-24 07:15] VITALS: BMI 36.6
[2024-04-24 08:51] LABS: Hematocrit 40.5 % (37.0-47.0); Hemoglobin 14.1 g/dL (12.0-16.0); Mean Corp Hgb Conc. 34.8 g/dL (33.0-37.0); Mean Corpuscular Hgb 30.5 pg (27.0-31.0); Mean Corpuscular Volume 87.5 fL (81.0-99.0); Mean Platelet Volume 9.4 fL (7.4-10.4); Platelet Count 278 10^3/uL (130-400); Red Blood Cell Count 4.63 10^6/uL (4.20-5.40); Red Cell Dist. Width 13.5 % (11.5-14.5); White Blood Cell Count 9.3 10^3/uL (4.8-10.8)
[2024-04-24 09:18] LABS: ALT (SGPT) 73 U/L (0-35); AST (SGOT) 50 U/L (14-36); Albumin 4.4 g/dl (3.5-5.0); Alkaline Phosphatase 99 U/L (38-126); Blood Urea Nitrogen 21 mg/dl (7-17); Calcium 9.5 mg/dl (8.4-10.2); Carbon Dioxide 32 mmol/L (22-30); Chloride 98 mmol/L (98-107); Estimated Creatinine Clearance 73 ml/min; Glucose 116 mg/dl (70-99); HDL Cholesterol 48 mg/dl; LDL Cholesterol, Calculated 113 mg/dl; Potassium 3.7 mmol/L (3.5-5.1); Sodium 142 mmol/L (135-145); Total Bilirubin 0.5 mg/dl (0.2-1.3); Total Cholesterol 213 mg/dl (50-199); Total Protein 7.3 g/dl (6.3-8.2); Triglyceride 263 mg/dl (10-149); Very Low Density Lipoprotein 52 mg/dl (0-30); eGFR > 60.00
[2024-05-06] VITALS (11 sets, daily range): BP systolic 108–145; BP diastolic 60–76; BMI 36.6
[2024-05-06] MEDS: NORMOSOL-R/PLASMALYTE-A 1000 IV (08:44)
[2024-05-06] MEDS: TYLENOL 1000 MG PO (08:57)
[2024-05-06] MEDS: DILAUDID 0.5 MG IV (12:40)
[2024-05-06] MEDS: ROXICODONE 5 MG PO (14:45)
== END 2024-05-06 15:10 | disposition home or self-care (01) ==
LOC: SDS 06:54
PROVIDERS: ATTENDING PHYSICIAN Otolaryngology; FAMILY PHYSICIAN Family Medicine
DX: J03.91 Acute recurrent tonsillitis, unspecified (principal); J35.8 Other chronic diseases of tonsils and adenoids
CPT/HCPCS: 42826; 88304; 80048; 80053; 80061; 85027; 93005

== ENCOUNTER → 2024-12-04 13:20 | Outpatient (REF) | payer OTHER, SELFPAY ==
[2024-12-04 14:10] LABS: % Basophils 0.6 % (0-2); % Eosinophils 4.1 % (0-6); % Immature Granulocytes 0.4 % (0-0.5); % Lymphocytes 25.9 % (20.5-51.1); % Monocytes 8.2 % (1.7-9.3); % Neutrophils 60.8 % (42.2-75.2); Absolute Basophils 0.1 10^3/uL (0-0.2); Absolute Eosinophils 0.4 10^3/uL (0-0.7); Absolute Lymphocytes 2.2 10^3/uL (1.2-3.4); Absolute Monocytes 0.7 10^3/uL (0.1-0.6); Absolute Neutrophils 5.2 10^3/uL (1.4-6.5); Hematocrit 40.6 % (37.0-47.0); Hemoglobin 13.6 g/dL (12.0-16.0); Mean Corp Hgb Conc. 33.5 g/dL (33.0-37.0); Mean Corpuscular Hgb 29.8 pg (27.0-31.0); Mean Corpuscular Volume 88.8 fL (81.0-99.0); Mean Platelet Volume 8.9 fL (7.4-10.4); Nucleated Red Blood Cells % 0 %; Platelet Count 258 10^3/uL (130-400); Red Blood Cell Count 4.57 10^6/uL (4.20-5.40); Red Cell Dist. Width 13.2 % (11.5-14.5); White Blood Cell Count 8.5 10^3/uL (4.8-10.8)
[2024-12-04 14:36] LABS: ALT (SGPT) 82 U/L (0-35); AST (SGOT) 46 U/L (14-36); Albumin 4.5 g/dl (3.5-5.0); Alkaline Phosphatase 105 U/L (38-126); Blood Urea Nitrogen 15 mg/dl (7-17); Calcium 9.4 mg/dl (8.4-10.2); Carbon Dioxide 35 mmol/L (22-30); Chloride 99 mmol/L (98-107); Glucose 92 mg/dl (70-99); HDL Cholesterol 37 mg/dl; LDL Cholesterol, Calculated 96 mg/dl; Potassium 3.8 mmol/L (3.5-5.1); Sodium 140 mmol/L (135-145); Total Bilirubin 0.6 mg/dl (0.2-1.3); Total Cholesterol 195 mg/dl (50-199); Total Protein 7.2 g/dl (6.3-8.2); Triglyceride 311 mg/dl (10-149); Very Low Density Lipoprotein 62 mg/dl (0-30); eGFR > 60.00
== END ==
LOC: REG 13:20
PROVIDERS: ATTENDING PHYSICIAN Nurse Practitioner Family; FAMILY PHYSICIAN Family Medicine
DX: I10 Essential (primary) hypertension (principal); R53.82 Chronic fatigue, unspecified; E87.6 Hypokalemia; E78.5 Hyperlipidemia, unspecified
CPT/HCPCS: 36415; 80053; 80061; 84443; 85025

== ENCOUNTER → 2025-01-01 14:41 | Outpatient (REF) | payer OTHER, SELFPAY | LOC: WDC 14:41 | PROVIDERS: ATTENDING PHYSICIAN Nurse Practitioner Family; FAMILY PHYSICIAN Family Medicine | DX: Z12.31 Encounter for screening mammogram for malignant neoplasm of breast (principal) | CPT/HCPCS: 77063; 77067 ==

== ENCOUNTER → 2025-02-09 08:48 | Outpatient (REF) | payer OTHER, SELFPAY | LOC: WDC 08:48 | PROVIDERS: ATTENDING PHYSICIAN Nurse Practitioner Family; FAMILY PHYSICIAN Family Medicine | DX: R92.8 Other abnormal and inconclusive findings on diagnostic imaging of breast (principal) | CPT/HCPCS: 76642 ==

== ENCOUNTER → 2025-02-22 08:58 | Outpatient (REF) | payer OTHER, SELFPAY ==
[2025-02-22 10:14] LABS: ALT (SGPT) 63 U/L (0-35); AST (SGOT) 44 U/L (14-36); Albumin 4.9 g/dl (3.5-5.0); Alkaline Phosphatase 86 U/L (38-126); Direct Bilirubin 0.3 mg/dl (0.0-0.4); Total Bilirubin 0.6 mg/dl (0.2-1.3)
== END ==
LOC: REG 08:58
PROVIDERS: ATTENDING PHYSICIAN Family Medicine; FAMILY PHYSICIAN Family Medicine
DX: M79.671 Pain in right foot (principal); R74.01 Elevation of levels of liver transaminase levels
CPT/HCPCS: 36415; 73630; 80076

== ENCOUNTER → 2025-03-10 16:07 | Outpatient (REF) | payer OTHER, SELFPAY | LOC: RAD 16:07 | PROVIDERS: ATTENDING PHYSICIAN Family Medicine | DX: R74.01 Elevation of levels of liver transaminase levels (principal) | CPT/HCPCS: 76700 ==

== ENCOUNTER 2025-08-24 06:23 | Day surgery (SDC) | payer OTHER, SELFPAY | END 2025-08-24 14:42 | disposition home or self-care (01) | LOC: GI 06:23 | PROVIDERS: ATTENDING PHYSICIAN Surgery | DX: Z12.11 Encounter for screening for malignant neoplasm of colon (principal); K52.9 Noninfective gastroenteritis and colitis, unspecified; K52.89 Other specified noninfective gastroenteritis and colitis | CPT/HCPCS: 45380; 88305 ==